=== PATIENT | male | born 2005 | race Caucasian/White ===

== ENCOUNTER 2025-03-12 12:09 | Day surgery (SDC) | payer BC ==
[2025-03-11 14:33] VITALS: BMI 21.4
[2025-03-12] MEDS ORDERED: CEFAZOLIN 2 GM VIAL ONE ×2 (14:05→19:07)
[2025-03-12] MEDS ORDERED: Ketorolac Tromethamine 30 MG (1 mL) VIAL ONE (19:16)
[2025-03-12] MEDS ORDERED: Ondansetron PF 4 MG/2 ML Vial ONE (19:16)
[2025-03-12] MEDS ORDERED: Lidocaine 1% PF 5 ML VIAL ONE (19:16)
[2025-03-12] MEDS ORDERED: fentaNYL PF 100 MCG/2 ML SYRINGE ONE ×2 (19:16→20:58)
[2025-03-12] MEDS ORDERED: PROPOFOL 200 MG/20 ML VIAL ONE (19:27)
[2025-03-12] MEDS ORDERED: HYDROcodone/Acetaminophen 5/325 mg Tablet ONE (21:12)
== END 2025-03-12 21:35 | disposition home or self-care (01) ==
LOC: SDC 12:09
PROVIDERS: ATTEND Orthopaedic Surgery
PROC: 0PS904Z Reposition Right Clavicle with Internal Fixation Device, Open Approach (ICD-10-PCS; principal; 2025-03-12)
DX: S42.001A Fracture of unspecified part of right clavicle, initial encounter for closed fracture (principal); V29.99XA Rider (driver) (passenger) of other motorcycle injured in unspecified traffic accident, initial encounter
CPT/HCPCS: C1713; J0169; J0665; J1885; J2250; J2405; J2704